=== PATIENT | male | born 1965 | race Caucasian/White ===

== ENCOUNTER 2022-02-15 12:21 | Inpatient (IN) | payer MEDICARE, MEDICAID ==
[~2022-02-15] VITALS: Ht 170.2 cm; Wt 103.6 kg
[2022-02-15 14:23] LABS: BASOPHILS % 1.2 % (0.0-2.0); EOSINOPHILS % 5.8 % (0.0-5.0); HEMATOCRIT. 35.5 % (42.0-52.0); HEMOGLOBIN. 11.5 g/dL (14.0-18.0); LYMPHOCYTES % 18.4 % (20.0-50.0); MEAN CORPUSCULAR VOLUME 89.3 fL (80.0-94.0); MEAN PLATELET VOLUME 10.4 fl (7.4-10.4); MONOCYTES % 6.4 % (2.0-8.0); NEUTROPHILS % 68.2 % (40.0-76.0); PLATELET 194 x1000/uL (130-400); RED BLOOD CELL COUNT 3.97 mill/uL (4.7-6.1)
[2022-02-15 14:24] LABS: CLARITY URINE CLEAR (CLEAR); COLOR URINE YELLOW (YELLOW); KETONES URINE NEGATIVE (NEGATIVE); LEUKOCYTE ESTERASE URINE 1+ (NEGATIVE); NITRITE URINE NEGATIVE (NEGATIVE); OCCULT BLOOD URINE TRACE (NEGATIVE); PROTEIN URINE 3+ (NEGATIVE); SPECIFIC GRAVITY URINE 1.016 (1.005-1.030); UROBILINOGEN URINE 0.2 E.U./dL (0.2-1.0)
[2022-02-15 14:31] LABS: CHLORIDE 121 mEq/L (98-107)
[2022-02-15 14:43] LABS: ETHANOL BLOOD < 10 mg/dL
[2022-02-15 15:01] LABS: *AMPHETAMINES SCREEN URINE NEGATIVE (NEGATIVE); *BARBITURATES SCREEN URINE NEGATIVE (NEGATIVE); *BENZODIAZEPINES SCREEN URINE NEGATIVE (NEGATIVE); *COCAINE SCREEN URINE NEGATIVE (NEGATIVE); CANNABINOID URINE SCREEN NEGATIVE (NEGATIVE); METHADONE URINE SCREEN NEGATIVE (NEGATIVE); OPIATES URINE SCREEN NEGATIVE (NEGATIVE); PHENCYCLIDINE URINE SCREEN NEGATIVE (NEGATIVE)
[2022-02-15 17:35] VITALS: BP 148/78
[2022-02-15] MEDS ORDERED: IPRATROPIUM/ALBUTEROL 0.5-3(2.5)MG/3ML NEB HHN PRN (18:30)
[2022-02-15] MEDS ORDERED: ONDANSETRON HCL 4MG/2ML INJ IV PRN (18:30)
[2022-02-15] MEDS ORDERED: CLONIDINE 0.1MG TABLET PO PRN (18:30)
[2022-02-15] MEDS ORDERED: DIPHENHYDRAMINE 50MG/ML VIAL IV PRN (18:30)
[2022-02-15] MEDS ORDERED: CEFTRIAXONE 1,000 MG in DEXTROSE 5% WATER 50 ML IV SCH ×2 (18:30→19:30)
[2022-02-15 20:00] VITALS: BP_SYST 158; BP_SYST 167; BP_DIAS 83
[2022-02-15] MEDS ORDERED: DEXTROSE 50% WATER 50ML SYRINGE IV PRN (20:30)
[2022-02-15] MEDS: ACETAMINOPHEN 325MG TABLET PO PRN (20:35)
[2022-02-15] MEDS: BLOOD SUGAR DIAGNOSTIC STRIP TEST SCH (20:35)
[2022-02-15] MEDS: INSULIN LISPRO 100 UNITS/ML SUBCUT SCH (20:35)
[2022-02-15] MEDS: CEFTRIAXONE 1,000 MG in DEXTROSE 5% WATER 50 ML IV SCH (21:03)
[2022-02-15] MEDS: SODIUM CHLORIDE 0.9% 1,000 ML IV SCH (21:03)
[2022-02-16] VITALS: BP 148/80
[2022-02-16] MEDS: ACETAMINOPHEN 325MG TABLET PO PRN ×2 (00:52→21:30)
[2022-02-16 04:00] VITALS: BP 140/73
[2022-02-16 05:36] LABS: BASOPHILS % 1.1 % (0.0-2.0); EOSINOPHILS % 5.9 % (0.0-5.0); LYMPHOCYTES % 22.8 % (20.0-50.0); MEAN CORPUSCULAR HEMOGLOBIN 29.6 pg (28.0-32.0); MEAN CORPUSCULAR VOLUME 88.4 fL (80.0-94.0); MEAN PLATELET VOLUME 10.7 fl (7.4-10.4); MONOCYTES % 8.6 % (2.0-8.0); NEUTROPHILS % 61.6 % (40.0-76.0); PLATELET 170 x1000/uL (130-400); RED BLOOD CELL COUNT 3.73 mill/uL (4.7-6.1); RED CELL DISTRIBUTION WIDTH 14.5 % (11.6-14.6)
[2022-02-16 05:59] LABS: CHLORIDE 117 mEq/L (98-107)
[2022-02-16] MEDS: BLOOD SUGAR DIAGNOSTIC STRIP TEST SCH ×4 (06:32→20:45)
[2022-02-16] MEDS ORDERED: HYDROCODONE/ACETAMINOPHEN 5/325MG TABLET PO PRN (06:45)
[2022-02-16] MEDS: INSULIN LISPRO 100 UNITS/ML SUBCUT SCH ×4 (07:50→20:45)
[2022-02-16 08:00] VITALS: BP 157/76
[2022-02-16] MEDS ORDERED: PNEUMOCOCCAL 23-VAL P-SAC VAC 0.5 ML IM ONE (09:00)
[2022-02-16 12:00] VITALS: BP 144/70
[2022-02-16 13:12] LABS: BG BASE EXCESS -10.6 mmol/L (-2.0-2.0); BG DEOXYHEMOGLOBIN 5.2 % (0.0-5.0); BG FRACTION INSPIRED OXYGEN 21; BG HCO3 ACT 15.2 mmol/L (22.0-26.0); BG METHEMOGLOBIN 0.3 % (0.0-1.5); BG OXYGEN SATURATION 94.8 % (92.0-98.5); BG OXYHEMOGLOBIN 94.5 % (94.0-97.0); BG PCO2 33.6 mmHg (35.0-45.0); BG PH 7.274 (7.350-7.450); BG PO2 83.5 mmHg (75.0-100.0); BG SAMPLE SITE RIGHT RADIAL; BG TOTAL HEMOGLOBIN 11.5 g/dL (12.0-18.0); BG VENT MODE ROOM AIR
[2022-02-16] MEDS ORDERED: NALOXONE HCL 0.4MG/ML VIAL IV PRN (13:30)
[2022-02-16] MEDS: SODIUM CHLORIDE 0.9% 1,000 ML IV SCH (14:16)
[2022-02-16 16:00] VITALS: BP 167/84
[2022-02-16] MEDS: CITRIC ACID/SODIUM CITRATE SOLN 30ML UDC PO SCH (17:04)
[2022-02-16] MEDS: HYDROCODONE/ACETAMINOPHEN 10/325MG TABLET PO PRN (17:05)
[2022-02-16 20:00] VITALS: BP 132/88
[2022-02-16] MEDS: CEFTRIAXONE 1,000 MG in DEXTROSE 5% WATER 50 ML IV SCH (20:06)
[2022-02-17] VITALS: BP 141/76
[2022-02-17 03:59] VITALS: BP 145/80
[2022-02-17] MEDS: BLOOD SUGAR DIAGNOSTIC STRIP TEST SCH ×2 (06:35→12:20)
[2022-02-17] MEDS: INSULIN LISPRO 100 UNITS/ML SUBCUT SCH ×2 (07:10→12:22)
[2022-02-17 07:26] LABS: PHOSPHORUS 5.6 mg/dL (2.5-4.9)
[2022-02-17 07:37] LABS: HEPATITIS B SURFACE ANTIGEN NEGATIVE
[2022-02-17 08:00] VITALS: BP 123/75
[2022-02-17] MEDS: CITRIC ACID/SODIUM CITRATE SOLN 30ML UDC PO SCH (08:36)
[2022-02-17] MEDS: HYDROCODONE/ACETAMINOPHEN 10/325MG TABLET PO PRN (08:37)
[2022-02-17 12:00] VITALS: BP 153/79
[2022-02-17] MEDS ORDERED: CALC667C PO (12:10)
[2022-02-17] MEDS ORDERED: CITR473S PO (12:10)
[2022-02-17] MEDS: SODIUM CHLORIDE 0.9% 1,000 ML IV SCH (12:36)
[2022-02-17] MEDS ORDERED: CALCIUM ACETATE 667MG CAPSULE PO SCH (12:50)
[2022-02-17] MEDS ORDERED: CITRIC ACID/SODIUM CITRATE SOLN 30ML UDC PO SCH (13:00)
[2022-02-17] MEDS ORDERED: DIATR MEGLU/DIATRIZOATE SOLN 30ML ONE (13:30)
[2022-02-17 14:34] VITALS: BP 153/79
== END 2022-02-17 15:29 | disposition home health service (06) | DRG 683 ==
LOC: ER 12:21 → 6WST 15:21 → EDBEDREQTM 15:32 → EDBEDREQ 15:32 → ENRESERV 16:46
PROVIDERS: ADMIT Internal Medicine; ATTEND Internal Medicine
PROC: 5A1D70Z Performance of Urinary Filtration, Intermittent, Less than 6 Hours Per Day (ICD-10-PCS; principal; 2022-02-16)
DX: N17.9 Acute kidney failure, unspecified (principal); E44.0 Moderate protein-calorie malnutrition; I12.0 Hypertensive chronic kidney disease with stage 5 chronic kidney disease or end stage renal disease; R82.81 Pyuria; N18.6 End stage renal disease; D64.9 Anemia, unspecified; E11.22 Type 2 diabetes mellitus with diabetic chronic kidney disease; E78.00 Pure hypercholesterolemia, unspecified; E83.39 Other disorders of phosphorus metabolism; R79.89 Other specified abnormal findings of blood chemistry; R63.5 Abnormal weight gain; E78.5 Hyperlipidemia, unspecified; Z68.35 Body mass index [BMI] 35.0-35.9, adult; I69.334 Monoplegia of upper limb following cerebral infarction affecting left non-dominant side
CPT/HCPCS: 36415; 36600; 70551; 71045; 72141; 76770; 80048; 80053; 80305; 80320; 81003; 82375; 82570; 82805; 82962; 83036; 83880; 84100; 84156; 84484; 85025; 86038; 86803; 87340; 90732; 93005; 99285; J0696; J7060; Q9963; G0480

== ENCOUNTER 2022-03-05 12:14 | Emergency (ER) | payer MEDICARE, MEDICAID ==
[~2022-03-05] VITALS: Ht 180.3 cm; Wt 105.0 kg
[~2022-03-05 12:14] MED LIST: CALC667C PO; CITR473S PO
[2022-03-05 12:35] VITALS: BP 160/76
[2022-03-05] MEDS ORDERED: ACETAMINOPHEN WITH CODEINE 300/30MG TABLET PO NR (13:32)
[2022-03-05] MEDS ORDERED: GABA-532 PO (13:56)
[2022-03-05] MEDS ORDERED: ACET-2708 PO (13:56)
== END 2022-03-05 14:25 | disposition home or self-care (01) ==
LOC: ER 12:14
DX: M54.2 Cervicalgia (principal); M79.602 Pain in left arm; I10 Essential (primary) hypertension; E78.00 Pure hypercholesterolemia, unspecified; E11.9 Type 2 diabetes mellitus without complications; Z86.73 Personal history of transient ischemic attack (TIA), and cerebral infarction without residual deficits
CPT/HCPCS: 99283